=== PATIENT | male | born 1985 | race Caucasian/White ===

== ENCOUNTER 2019-06-14 20:40 | Emergency (ER) | payer BC ==
[2019-06-14 21:50] LABS: ABS Basophils 0.1 10^3/ul (0-0.2); ABS Eosinophils 0.4 10^3/ul (0-0.6); ABS Lymphocytes 3.4 10^3/ul (1.0-4.8); ABS Monocytes 0.5 10^3/ul (0-0.8); ABS Neutrophils 4.6 10^3/ul (1.5-7.7); Eosinophil % 4.7 %; Hematocrit 43 % (42-52); Lymphocyte % 37.7 %; Mean Corpuscular HGB Conc 35 g/dL (31-36); Mean Corpuscular Hemoglobin 30 pg (27-31); Mean Corpuscular Volume 86 fL (80-94); Mean Platelet Volume 8.1 fL (7.4-10.4); Platelet Count 244 10^3/uL (150-450); Red Blood Count 5.02 10^6 /uL (4.18-5.48); Red Cell Distribution Width 13 % (10-15)
[2019-06-14 21:55] LABS: INR 1.07 (0.82-1.09)
[2019-06-14 22:03] LABS: Albumin 4.7 g/dL (3.2-5.2); Albumin/Globulin Ratio 2.2 (1-3); BUN/Creatinine Ratio 12.1 (8-20); Calcium 9.6 mg/dL (8.6-10.3); EGFR African American 96.3 (>60); EGFR Non-African American 79.6 (>60); Globulin 2.1 g/dL (2-4); Potassium 3.8 mmol/L (3.5-5.0); Total Bilirubin 0.4 mg/dL (0.2-1.0); Total Protein 6.8 g/dL (6.4-8.9)
--- NOTE | 2019-06-14 23:57 | ED ---
HPI Chest Pain - HPI Summary HPI Summary: Pt is a 34 y/o M presenting to the ED with a chief complaint of chest pain initially onset about 1 week ago just to the R of the center of his chest. He also notes back pain. he denies SOB, fever, cough, diaphoresis, nausea, recent travel, LE myalgia, or LE edema. He has not tried medication to alleviate sx. - History of Current Complaint Chief Complaint: EDChestPainROMI Time Seen by Provider: 06/14/19 23:07 Hx Obtained From: Patient Onset/Duration: Started Days Ago, Still Present Timing: Constant, Lasting Days Initial Severity: Moderate Current Severity: Moderate Pain Intensity: 4 Pain Scale Used: 0-10 Numeric Chest Pain Location: Mid Sternal Chest Pain Radiates: Yes Chest Pain Radiates To:: Back Aggravating Factor(s): Other: - palpation Associated Signs and Symptoms: Positive: Chest Pain. Negative: Shortness of Breath, Fever, Diaphoresis, Nausea, Cough, Edema - Allergy/Home Medications Allergies/Adverse Reactions: Allergies Allergy/AdvReac Type Severity Reaction Status Date / Time No Known Allergies Allergy Verified 07/11/15 09:07 PMH/Surg Hx/FS Hx/Imm Hx Previously Healthy: Yes Endocrine/Hematology History: Denies: Hx Diabetes, Hx Thyroid Disease Cardiovascular History: Denies: Hx Hypertension Respiratory History: Denies: Hx Asthma, Hx Chronic Obstructive Pulmonary Disease (COPD) GI History: Reports: Hx Hiatal Hernia - Hx OF STATES NO PROBLEMS IN PAST 2 YRS Denies: Hx Ulcer Sensory History: Reports: Hx Contacts or Glasses - GLASSES Opthamlomology History: Reports: Hx Contacts or Glasses - GLASSES - Surgical History Surgery Procedure, Year, and Place: 1989 tonsiLlectomy [facility] Hx Anesthesia Reactions: No - Immunization History Immunizations Up to Date: Yes Infectious Disease History: No Infectious Disease History: Denies: Hx Clostridium Difficile, Hx Hepatitis, Hx Human Immunodeficiency Virus (HIV), Hx of Known/Suspected MRSA, Hx Shingles, Hx Tuberculosis, Hx Known/ Suspected VRE, Hx Known/Suspected VRSA, History Other Infectious Disease, Traveled Outside the [place] in Last 30 Days - Family History Known Family History: Positive: Cardiac Disease - father had [place] at 55 Negative: Blood Disorder - blood clot - Social History Alcohol Use: Weekly Alcohol Amount: twice a month Hx Substance Use: Yes Substance Use Type: Reports: Cocaine, Marijuana Substance Use Comment - Amount & Last Used: once or twice a week Hx Tobacco Use: Yes Smoking Status (MU): Heavy Every Day Tobacco Smoker Type: Cigarettes Amount Used/How Often: DOWN TO 5 cigs per day ON CHANTEX ,SMOKED 6 YRS, TRYING NUMEROUS Xs TO QUIT Length of Time of Smoking/Using Tobacco: 6 YRS Have You Smoked in the Last Year: Yes Review of Systems Negative: Fever, Skin Diaphoresis Positive: Chest Pain Negative: Shortness Of Breath, Cough Negative: Nausea Positive: Other - back pain. Negative: Myalgia, Edema All Other Systems Reviewed And Are Negative: Yes Physical Exam - Summary Physical Exam Summary: Constitutional: Well-developed, Well-nourished, Alert. (-) Distressed Skin: Warm, Dry HENT: Normocephalic; Atraumatic Eyes: Conjunctiva normal Neck: Musculoskeletal ROM normal neck. (-) JVD, (-) Stridor, (-) Tracheal deviation Cardio: Rhythm regular, rate normal, Heart sounds normal; Intact distal pulses; The pedal pulses are 2+ and symmetric. Radial pulses are 2+ and symmetric. (-) Murmur Pulmonary/Chest wall: Effort normal. Tenderness at R sternal costal border. (-) Respiratory distress, (-) Wheezes, (-) Rales Abd: Soft, (-) tenderness, (-) Distension, (-) Guarding, (-) Rebound Musculoskeletal: (-) Edema Lymph: (-) Cervical adenopathy Neuro: Alert, Oriented x3 Psych: Mood and affect Normal Triage Information Reviewed: Yes Vital Signs On Initial Exam: Initial Vitals Temp Pulse Resp BP Pulse Ox 98.6 F 78 16 106/71 99 06/14/19 20:43 06/14/19 20:43 06/14/19 20:43 06/14/19 20:43 06/14/19 20:43 Vital Signs Reviewed: Yes Procedures - Sedation Patient Received Moderate/Deep Sedation with Procedure: No Diagnostics - Vital Signs Vital Signs Temp Pulse Resp BP Pulse Ox 06/14/19 20:43 98.6 F 78 16 106/71 99 - Laboratory Lab Results: Lab Results 06/14/19 06/14/19 06/14/19 Range/Units 21:37 21:37 21:37 WBC 9.0 (3.5-10.8) 10^3/uL RBC 5.02 (4.18-5.48) 10^6 /uL Hgb 15.0 (14.0-18.0) g/dL Hct 43 (42-52) % MCV 86 (80-94) fL MCH 30 (27-31) pg MCHC 35 (31-36) g/dL RDW 13 (10-15) % Plt Count 244 (150-450) 10^3/uL MPV 8.1 (7.4-10.4) fL Neut % (Auto) 50.8 % Lymph % (Auto) 37.7 % [place] % (Auto) 5.8 % Eos % (Auto) 4.7 % Baso % (Auto) 1.0 % Absolute Neuts (auto) 4.6 (1.5-7.7) 10^3/ul Absolute Lymphs (auto) 3.4 (1.0-4.8) 10^3/ul Absolute Monos (auto) 0.5 (0-0.8) 10^3/ul Absolute Eos (auto) 0.4 (0-0.6) 10^3/ul Absolute Basos (auto) 0.1 (0-0.2) 10^3/ul Absolute Nucleated RBC 0.0 10^3/ul Nucleated RBC % 0.0 INR (Anticoag Therapy) 1.07 (0.82-1.09) D-Dimer, Quantitative < 200 (Less Than 230) ng/mL Sodium 138 (135-145) mmol/L Potassium 3.8 (3.5-5.0) mmol/L Chloride 103 (101-111) mmol/L Carbon Dioxide 27 (22-32) mmol/L Anion Gap 8 (2-11) mmol/L BUN 13 (6-24) mg/dL Creatinine 1.07 (0.67-1.17) mg/dL Est GFR ( Amer) 96.3 (>60) Est GFR (Non-Af Amer) 79.6 (>60) BUN/Creatinine Ratio 12.1 (8-20) Glucose 103 H (70-100) mg/dL Calcium 9.6 (8.6-10.3) mg/dL Total Bilirubin 0.40 (0.2-1.0) mg/dL AST 21 (13-39) U/L ALT 27 (7-52) U/L Alkaline Phosphatase 57 (34-104) U/L Troponin I 0.00 (<0.04) ng/mL Total Protein 6.8 (6.4-8.9) g/dL Albumin 4.7 (3.2-5.2) g/dL Globulin 2.1 (2-4) g/dL Albumin/Globulin Ratio 2.2 (1-3) Result Diagrams: 06/14/19 21:37 06/14/19 21:37 Lab Statement: Any lab studies that have been ordered have been reviewed, and results considered in the medical decision making process. - Radiology CXR Radiology Interpretation Completed By: ED Physician Summary of Radiographic Findings: No acute process. Pending official radiology report. - EKG 2042 Cardiac Rate: NL - 73bpm EKG Rhythm: Sinus Rhythm ST Segment: Normal Ectopy: None Summary of EKG Findings: EKG at 2042 shows NSR at 73bpm. No STEMI. Chest Pain Course/Dx - Course Course Of Treatment: Patient is here with one week of constant right-sided chest pain at the costal sternal border. Patient had serial troponins which were negative. Patient negative chest x-ray. Patient EKG which showed no abnormality. Patient's history is not consistent with ACS and does not need follow-up stress test. Patient is low risk PE and had a negative d-dimer. Patient has follow-up with Dr. Meier on 06/15/19 at 9 am. - Diagnoses Provider Diagnoses: Chest pain Discharge ED - Sign-Out/Discharge Documenting (check all that apply): Patient Departure - Discharge Plan Condition: Stable Disposition: HOME Patient Education Materials: Chest Pain (ED) Referrals: Diogenes Meier MD [Primary Care Provider] - Additional Instructions: Please call your primary care provider to schedule a follow up appointment within the next 1-3 days. Take 600mg Motrin as needed for your pain. Return to the emergency department with any new or worsening symptoms. - Billing Disposition and Condition Condition: STABLE Disposition: Home - Attestation Statements Document Initiated by Scribe: Yes Documenting Scribe: Carmen Mota Provider For Whom Scribe is Documenting (Include Credential): Garry Shelton MD. Scribe Attestation: Carmen Vasquez, scribed for Garry Shelton MD. on 06/15/19 at 0047. Scribe Documentation Reviewed: Yes Provider Attestation: The documentation as recorded by the scribe, Carmen Mota accurately reflects the service I personally performed and the decisions made by me, Garry Shelton MD. Status of Scribe Document: Viewed
[2019-06-15] MEDS: Ibuprofen TAB* 600 MG PO ONE (00:08)
[2019-06-15 00:36] VITALS: BP 124/78
--- NOTE | 2019-06-15 14:18 | ED ---
Imaging and Labs Follow Up Follow Up Type: Imaging Imaging Result: PATCHY ATELECTASIS VERSUS EARLY CONSOLIDATION OF THE RIGHT LUNG BASE. Patient Communication/Plan: Pt. seen for CP. No complaint of fever, cough, SOB per ED documentation. No change in treatment needed. Provider Diagnoses: Chest pain
== END 2019-06-15 00:21 | disposition home or self-care (01) ==
LOC: ED 20:40
DX: R07.9 Chest pain, unspecified (principal); F17.210 Nicotine dependence, cigarettes, uncomplicated
CPT/HCPCS: 36415; 71045; 80053; 84484; 85025; 85379; 85610; 93005; 99283; A9270-GY

== ENCOUNTER 2019-07-22 10:54 | Emergency (ER) | payer BC, OTHER ==
[2019-07-22] MEDS ORDERED: Tetan/Diph/Pertus SYR(Tdap)* 0.5 ML SYR(BOOSTRIX) use SYR contains LATEX IM ONE (11:07)
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
[2019-07-22 14:02] VITALS: BP 111/72
== END 2019-07-22 14:05 | disposition home or self-care (01) ==
LOC: ED 10:54
DX: S06.0X9A Concussion with loss of consciousness of unspecified duration, initial encounter (principal); Z23 Encounter for immunization; F17.210 Nicotine dependence, cigarettes, uncomplicated; V48.5XXA Car driver injured in noncollision transport accident in traffic accident, initial encounter; Y92.410 Unspecified street and highway as the place of occurrence of the external cause; Z79.899 Other long term (current) drug therapy
CPT/HCPCS: 70450; 71045; 72170; 90471; 90715; 99282

== ENCOUNTER 2019-07-24 13:48 | Observation (INO) | payer OTHER ==
[2019-07-24] MEDS ORDERED: fentaNYL* 50 MCG/ML 2 ML VIAL (100 MCG VIAL) IV SLOW PU ONE ×2 (14:33→14:45)
[2019-07-24] MEDS ORDERED: Ondansetron INJ* 2 MG/ML VIAL IV ONE (14:33)
[2019-07-24] MEDS ORDERED: NS 0.9% 1000 ML** 1,000 ML IV ONE (14:33)
[2019-07-24 14:48] LABS: ABS Basophils 0.2 10^3/ul (0-0.2); ABS Eosinophils 0.3 10^3/ul (0-0.6); ABS Lymphocytes 3.3 10^3/ul (1.0-4.8); ABS Monocytes 0.5 10^3/ul (0-0.8); ABS Neutrophils 8.6 10^3/ul (1.5-7.7); Eosinophil % 2.2 %; Hematocrit 46 % (42-52); Hemoglobin 15.3 g/dL (14.0-18.0); Lymphocyte % 25.9 %; Mean Corpuscular HGB Conc 33 g/dL (31-36); Mean Corpuscular Hemoglobin 29 pg (27-31); Mean Corpuscular Volume 86 fL (80-94); Mean Platelet Volume 7.9 fL (7.4-10.4); Platelet Count 218 10^3/uL (150-450); Red Blood Count 5.36 10^6 /uL (4.18-5.48); Red Cell Distribution Width 14 % (10-15); White Blood Count 12.9 10^3/uL (3.5-10.8)
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
[2019-07-24 15:05] LABS: ALT 33 U/L (7-52); AST 22 U/L (13-39); Albumin 4.6 g/dL (3.2-5.2); Albumin/Globulin Ratio 1.7 (1-3); Alkaline Phosphatase 56 U/L (34-104); Anion Gap 7 mmol/L (2-11); BUN/Creatinine Ratio 14.6 (8-20); Blood Urea Nitrogen 13 mg/dL (6-24); CO2 Carbon Dioxide 25 mmol/L (22-32); Calcium 9.6 mg/dL (8.6-10.3); Chloride 105 mmol/L (101-111); EGFR African American 119.1 (>60); EGFR Non-African American 98.4 (>60); Globulin 2.7 g/dL (2-4); Glucose 100 mg/dL (70-100); Potassium 4.1 mmol/L (3.5-5.0); Sodium 137 mmol/L (135-145); Total Protein 7.3 g/dL (6.4-8.9)
[2019-07-24 15:10] LABS: Acetaminophen < 15 mcg/mL; Salicylate < 2.50 mg/dL (<30)
[2019-07-24] MEDS ORDERED: Acetaminophen TAB* 325 MG PO PRN (16:52)
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
[2019-07-24 17:49] LABS: Urine Benzodiazepine Screen None Detected (None Detect); Urine Opiates Screen None Detected (None Detect)
[2019-07-24] MEDS: Nicotine PATCH 7 MG/24 HR* PATCH TRANSDERM SCH (19:20)
[2019-07-24] MEDS ORDERED: Influenza VAC *QUAD* 2019-20* 0.5 ML SYRINGE IM ONE (20:00)
[2019-07-24] MEDS ORDERED: Nicotine Patch Removal NOTE PATCH OFF SCH (21:00)
[2019-07-25 07:25] VITALS: BP 119/77
[2019-07-25] MEDS ORDERED: Influenza VAC *QUAD* 2019-20* 0.5 ML SYRINGE IM ONE (09:00)
[2019-07-25] MEDS ORDERED: Nicotine PATCH 7 MG/24 HR* PATCH TRANSDERM SCH (09:00)
[2019-07-25] MEDS: Nicotine PATCH 7 MG/24 HR* PATCH TRANSDERM SCH (09:48)
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
== END 2019-07-25 10:26 | disposition home or self-care (01) ==
LOC: ED 13:48 → SSU 16:49
PROVIDERS: ADMIT Internal Medicine; ATTEND Internal Medicine
DX: F07.81 Postconcussional syndrome (principal); R41.82 Altered mental status, unspecified; F17.210 Nicotine dependence, cigarettes, uncomplicated; H92.09 Otalgia, unspecified ear; Z23 Encounter for immunization
CPT/HCPCS: 36415; 70450; 80053; 80307; 80329; 85025; 90471; 90686; 96361; 96374; 96375; 99283; A9270-GY; G0008; G0378; G0480; J2405; J3010

== ENCOUNTER 2019-08-08 11:32 | Inpatient (IN) | payer BC, OTHER ==
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
[2019-08-08] MEDS ORDERED: Ibuprofen TAB* 600 MG PO ONE (14:11)
--- NOTE | 2019-08-08 18:05 | ED ---
Course/Dx - Course Course Of Treatment: Patient was evaluated in the emergency department for headache. During the interview the patient it was discovered that he was seeking psychiatric support and this was his main motivation and coming to the emergency department today. The patient was seen and evaluated and it was determined that there was no acute medical problem requiring intervention and his headache symptoms are likely due to postconcussive disorder. He was given ibuprofen for his headache and psychiatric services were consulted for disposition of the patient. patient after mental health will be admitted - Diagnoses Provider Diagnoses: Concussion, Depression Discharge ED - Sign-Out/Discharge Documenting (check all that apply): Patient Departure, Receiving Sign-Out Receiving patient FROM: Enrique Porter - Discharge Plan Condition: Stable Disposition: PSYCHIATRIC FACILITY-[facility] [place] - Billing Disposition and Condition Condition: STABLE Disposition: Psychiatric Facility [facility]
[2019-08-08 20:11] LABS: Hematocrit 40 % (42-52); Hemoglobin 13.9 g/dL (14.0-18.0); Mean Corpuscular HGB Conc 34 g/dL (31-36); Mean Corpuscular Hemoglobin 29 pg (27-31); Mean Corpuscular Volume 85 fL (80-94); Mean Platelet Volume 8.1 fL (7.4-10.4); Platelet Count 222 10^3/uL (150-450); Red Blood Count 4.78 10^6 /uL (4.18-5.48); Red Cell Distribution Width 14 % (10-15); White Blood Count 7.7 10^3/uL (3.5-10.8)
[2019-08-08 20:35] LABS: ALT 37 U/L (7-52); AST 21 U/L (13-39); Albumin 4.3 g/dL (3.2-5.2); Albumin/Globulin Ratio 1.9 (1-3); Alkaline Phosphatase 60 U/L (34-104); Anion Gap 7 mmol/L (2-11); BUN/Creatinine Ratio 19.2 (8-20); Blood Urea Nitrogen 14 mg/dL (6-24); CO2 Carbon Dioxide 27 mmol/L (22-32); Calcium 9.1 mg/dL (8.6-10.3); Chloride 107 mmol/L (101-111); EGFR African American 149.7 (>60); EGFR Non-African American 123.7 (>60); Globulin 2.3 g/dL (2-4); Glucose 112 mg/dL (70-100); Potassium 3.8 mmol/L (3.5-5.0); Sodium 141 mmol/L (135-145); Total Protein 6.6 g/dL (6.4-8.9)
[2019-08-08 20:54] LABS: Alcohol < 10 mg/dL (<10); Salicylate < 2.50 mg/dL (<30)
[2019-08-08 20:59] LABS: Acetaminophen < 15 mcg/mL
[2019-08-08 21:03] LABS: TSH (Thyroid Stimulating Horm) 1.22 mcIU/mL (0.34-5.60)
[2019-08-08 21:16] LABS: ABS Basophils 0.1 10^3/ul (0-0.2); ABS Eosinophils 0.3 10^3/ul (0-0.6); ABS Monocytes 0.4 10^3/ul (0-0.8); ABS Neutrophils 3.8 10^3/ul (1.5-7.7); Eosinophil % 4.2 %; Lymphocyte % 39.5 %; Nucleated Red Blood Cells % 0.1
[2019-08-08] MEDS ORDERED: Nicotine Patch Removal NOTE PATCH OFF SCH (23:13)
[2019-08-08] MEDS ORDERED: Al Hydrox/Mg Hydrox/Simet LIQ* 30 ML UDC PO PRN (23:13)
[2019-08-08] MEDS ORDERED: Nicotine* 2MG (FRUIT FLAVOR) GUM PO PRN (23:13)
[2019-08-09] MEDS: Acetaminophen TAB* 325 MG PO PRN ×3 (07:23→20:23)
[2019-08-09] MEDS: Nicotine PATCH 21 MG/24 HR* PATCH TRANSDERM SCH (10:34)
[2019-08-09] MEDS: Vitamin THERAPEUTIC TAB PO SCH (10:34)
[2019-08-09] MEDS ORDERED: Ibuprofen TAB* 600 MG PO PRN (10:49)
[2019-08-09 12:26] VITALS: BP 119/87
[2019-08-09] MEDS ORDERED: LORazepam TAB(*) 0.5 MG PO PRN (14:55)
[2019-08-09] MEDS: Gabapentin CAP(*) 100 MG PO SCH ×2 (15:37→20:21)
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
[2019-08-09] MEDS ORDERED: Escitalopram * 10 MG TAB PO SCH (21:00)
[2019-08-09] MEDS ORDERED: Nicotine Patch Removal NOTE PATCH OFF SCH (21:00)
[2019-08-10] MEDS: Acetaminophen TAB* 325 MG PO PRN ×2 (06:15→11:38)
[2019-08-10] MEDS: Vitamin THERAPEUTIC TAB PO SCH (08:47)
[2019-08-10] MEDS: Gabapentin CAP(*) 100 MG PO SCH (08:47)
[2019-08-10] MEDS: Nicotine PATCH 21 MG/24 HR* PATCH TRANSDERM SCH (08:48)
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
== END 2019-08-10 12:45 | disposition home or self-care (01) | DRG 885 ==
LOC: ED 11:32 → BSU 20:35
PROVIDERS: ADMIT Psychiatry & Neurology Psychiatry; ATTEND Psychiatry & Neurology Psychiatry
DX: F33.9 Major depressive disorder, recurrent, unspecified (principal); R45.851 Suicidal ideations; F17.210 Nicotine dependence, cigarettes, uncomplicated; K44.9 Diaphragmatic hernia without obstruction or gangrene; R51 Headache; Z79.899 Other long term (current) drug therapy
CPT/HCPCS: 36415; 80053; 80320; 80329; 84443; 85025; 99222; 99238; 99284; A9270-GY; G0480